=== PATIENT | male | born 1985 | race African-American/Black ===

== ENCOUNTER 2021-04-05 09:21 | Inpatient (IN) | payer MEDICAID ==
[~2021-04-05] VITALS: Ht 188 cm; Wt 130.2 kg
[2021-04-05 10:42] LABS: BASOPHILS % 0.8 % (0.0-2.0); HEMATOCRIT. 29.1 % (42.0-52.0); LYMPHOCYTES % 14.5 % (20.0-50.0); MEAN CORPUSCULAR VOLUME 83.5 fL (80.0-94.0); MEAN PLATELET VOLUME 7.8 fl (7.4-10.4); MONOCYTES % 11.5 % (2.0-8.0); NEUTROPHILS % 71.2 % (40.0-76.0); PLATELET 244 x1000/uL (130-400); RED BLOOD CELL COUNT 3.49 mill/uL (4.7-6.1); RED CELL DISTRIBUTION WIDTH 22.4 % (11.6-14.6)
[2021-04-05 10:45] LABS: CHLORIDE 98 mEq/L (98-107)
[2021-04-05 11:26] LABS: PLATELET ESTIMATE NORMAL
[2021-04-05] MEDS ORDERED: ENOXAPARIN 40MG/0.4ML SYR SUBCUT SCH (12:00)
[2021-04-05] MEDS ORDERED: ONDANSETRON HCL 4MG/2ML INJ IV PRN (12:15)
[2021-04-05] MEDS ORDERED: CLONIDINE 0.1MG TABLET PO PRN (12:15)
[2021-04-05] MEDS ORDERED: DOCUSATE SODIUM 100MG CAPSULE PO PRN (12:15)
[2021-04-05] MEDS ORDERED: GUAIFENESIN 200MG/10ML SUGAR FREE UDC PO PRN (12:15)
[2021-04-05] MEDS ORDERED: MAGNESIUM/ALUMINUM HYDROXIDE/SIMETHICONE 30ML UDC PO PRN (12:15)
[2021-04-05] MEDS ORDERED: ACETAMINOPHEN 325MG TABLET PO PRN (12:15)
[2021-04-05] MEDS ORDERED: MORPHINE SULFATE 4 MG/ML CPJ (NOT FOR IM USE) IV ONE (12:30)
[2021-04-05] MEDS ORDERED: ONDANSETRON HCL 4MG/2ML INJ IV ONE (14:30)
[2021-04-05] MEDS ORDERED: LORAZEPAM 2MG/ML CPJ IV ONE (14:45)
[2021-04-05 14:57] LABS: *AMPHETAMINES SCREEN URINE NEGATIVE (NEGATIVE); *BARBITURATES SCREEN URINE NEGATIVE (NEGATIVE); *BENZODIAZEPINES SCREEN URINE NEGATIVE (NEGATIVE); *COCAINE SCREEN URINE NEGATIVE (NEGATIVE); METHADONE URINE SCREEN NEGATIVE (NEGATIVE); OPIATES URINE SCREEN PRESUMTIVE POSITIVE (NEGATIVE)
[2021-04-05 14:58] LABS: CANNABINOID URINE SCREEN PRESUMTIVE POSITIVE (NEGATIVE); PHENCYCLIDINE URINE SCREEN NEGATIVE (NEGATIVE)
[2021-04-05] MEDS: FUROSEMIDE 40MG/4ML VIAL IV SCH (15:01)
[2021-04-05] MEDS: CARVEDILOL 3.125 MG TABLET PO SCH ×2 (15:02→17:00)
[2021-04-05] MEDS: HYDROCODONE/ACETAMINOPHEN 5/325MG TABLET PO PRN ×2 (15:14→18:27)
[2021-04-05] MEDS: HYDROMORPHONE HCL/PF 2MG/ML CPJ IV PRN (19:41)
[2021-04-05 19:42] VITALS: BP 127/98
[2021-04-05 20:00] VITALS: BP_SYST 127; BP_SYST 131; BP_DIAS 102; BP_DIAS 98
[2021-04-06] VITALS: BP 127/103
[2021-04-06] MEDS: HYDROCODONE/ACETAMINOPHEN 5/325MG TABLET PO PRN (00:47)
[2021-04-06] MEDS: HYDROMORPHONE HCL/PF 2MG/ML CPJ IV PRN (01:55)
[2021-04-06 04:00] VITALS: BP 135/85
[2021-04-06] MEDS: FUROSEMIDE 40MG/4ML VIAL IV SCH (06:17)
[2021-04-06 06:50] LABS: BASOPHILS % 0.9 % (0.0-2.0); EOSINOPHILS % 1.2 % (0.0-5.0); HEMATOCRIT. 33.4 % (42.0-52.0); HEMOGLOBIN. 10.1 g/dL (14.0-18.0); LYMPHOCYTES % 16.5 % (20.0-50.0); MEAN CORPUSCULAR HEMOGLOBIN 25.2 pg (28.0-32.0); MEAN CORPUSCULAR VOLUME 82.9 fL (80.0-94.0); MEAN PLATELET VOLUME 8.5 fl (7.4-10.4); MONOCYTES % 11.4 % (2.0-8.0); PLATELET 277 x1000/uL (130-400); RED BLOOD CELL COUNT 4.03 mill/uL (4.7-6.1); RED CELL DISTRIBUTION WIDTH 22.7 % (11.6-14.6)
[2021-04-06 07:07] LABS: CHLORIDE 98 mEq/L (98-107)
[2021-04-06] MEDS ORDERED: BUME1TAB8 PO (07:30)
[2021-04-06] MEDS ORDERED: ATOR20TA65 PO (07:30)
[2021-04-06] MEDS ORDERED: THIA100T72 PO (07:30)
[2021-04-06] MEDS ORDERED: LISI2.5T47 PO (07:30)
[2021-04-06] MEDS ORDERED: FOLI-43 PO (07:30)
[2021-04-06] MEDS ORDERED: CARV25TA47 PO (07:30)
[2021-04-06] MEDS ORDERED: RIVA20TA PO (07:30)
[2021-04-06] MEDS ORDERED: LORA10TA7 PO (07:30)
[2021-04-06] MEDS ORDERED: FURO40TA5 PO (07:30)
[2021-04-06] MEDS ORDERED: DIGO125T80 PO (07:30)
[2021-04-06] MEDS ORDERED: SPIR25TA6 PO (07:30)
[2021-04-06 08:00] VITALS: BP 112/82
[2021-04-06] MEDS ORDERED: *PATIENT'S OWN MEDICATION STORAGE XX SCH (08:00)
[2021-04-06] MEDS: CARVEDILOL 3.125 MG TABLET PO SCH (08:21)
[2021-04-06] MEDS ORDERED: FUROSEMIDE 40MG/4ML VIAL IV SCH (09:00)
== END 2021-04-06 12:10 | disposition left against medical advice (07) | DRG 203 ==
LOC: EDBD 09:43 → ER 09:43 → 6WST 11:45 → EDBEDREQTM 11:49 → EDBEDREQ 11:49 → ENRESERV 19:08
PROVIDERS: ADMIT Hospitalist; ATTEND Hospitalist
DX: M94.0 Chondrocostal junction syndrome [Tietze] (principal); I50.23 Acute on chronic systolic (congestive) heart failure; I27.21 Secondary pulmonary arterial hypertension; I24.9 Acute ischemic heart disease, unspecified; I42.0 Dilated cardiomyopathy; I11.0 Hypertensive heart disease with heart failure; I42.7 Cardiomyopathy due to drug and external agent; F14.10 Cocaine abuse, uncomplicated; G40.89 Other seizures; F15.10 Other stimulant abuse, uncomplicated; Z82.49 Family history of ischemic heart disease and other diseases of the circulatory system; Z87.891 Personal history of nicotine dependence; Z99.81 Dependence on supplemental oxygen; Z90.49 Acquired absence of other specified parts of digestive tract
CPT/HCPCS: 36415; 71045; 80048; 80053; 80305; 82962; 83735; 83880; 84484; 85025; 93005; 93970; 99285; J1170; J1940; J2060; J2405